=== PATIENT | female | born 1980 | race American Indian/Alaskan Native ===

== ENCOUNTER 2016-12-07 12:43 | Emergency (ER) | payer SELFPAY ==
[2016-12-07 13:50] VITALS: BP 132/76
--- NOTE | 2016-12-07 14:27 | Emergency Department Report ---
Chief Complaint: Skin/Abscess/Foreign Body Stated Complaint: POSS OBJECT IN THROAT/CHEST PAIN Time Seen by Provider: 12/07/16 14:16 - HPI History of Present Illness: 36-year-old -[place] female comes in with complaint of swallowing a piece of hard plastic light last that has a with in a Bar[employer] cheese steak. Patient states that she was able to cough part of it out but feels like there is still a piece stuck in the back of her throat patient denies any shortness of breath. She reports that her chest hurts when she tried to cough up the object as well as when she tried to swallow it. Patient is between 8-9 weeks required blitz - Exam Vital Signs: Vital Signs 12/07/16 13:41 Temperature 99.0 F Pulse Rate 94 H Respiratory 18 Rate Blood Pressure 132/76 O2 Sat by Pulse 100 Oximetry Physical Exam: Alert and oriented 3. Cardiovascular S1-S2 regular rate and rhythm respiratory clear to auscultation bilateral basal stridor there is no wheezing MSE screening note: Focused history and physical exam performed. Due to findings the following was ordered: He should be evaluated by the Main ER. ED Disposition for MSE Condition: Stable
== END 2016-12-07 19:30 | disposition left against medical advice (07) ==
LOC: ED 12:43
DX: O9A.211 Injury, poisoning and certain other consequences of external causes complicating pregnancy, first trimester (principal); T18.9XXA Foreign body of alimentary tract, part unspecified, initial encounter; Z3A.09 9 weeks gestation of pregnancy; X58.XXXA Exposure to other specified factors, initial encounter; Y93.89 Activity, other specified; Y99.9 Unspecified external cause status; Y92.89 Other specified places as the place of occurrence of the external cause; Z53.21 Procedure and treatment not carried out due to patient leaving prior to being seen by health care provider